=== PATIENT | male | born 1990 | race Caucasian/White ===

== ENCOUNTER → 2020-10-25 | Outpatient (CLI) | payer BC ==
--- NOTE | 2020-10-26 08:39 | ECHOS ---
Stress Test Results/Findings: Exam Performed: stress echo exercise Exam Date: 10/25/20 Reason for Exam: palpitations Height: 5 ft 11 in Weight: 172 kg Protocol: stress echo Stage: 5 Duration of Exercise: 12min 43 sec Resting Heart Rate: 66 Resting Blood Pressure: 110/35 Maximum Achieved Heart Rate: 174 Maximum Achieved Blood Pressure: 197 85% PMHR: 162 100% PMHR: 191 METS: 12.7 Technologist Comment: Stress Test Results/Findings: Patient underwent exercise stress echo with a Celso protocol treadmill stress test. Patient exercised into Stage 4 for a total of 12 minutes 43 seconds reaching a total of 12.7 METS. Patient's maximum heart rate was 174 which represented 90 % age-predicted maximum heart rate. Stress EKG portion: At baseline patient's EKG showed normal sinus rhythm, normal axis, no significant ST or T wave abnormalities. At peak exercise, EKG showed nondiagnostic 0.[address] depressions in the inferior and lateral leads. Stress echo portion: 2-D echocardiogram was performed in the parasternal long, personal short, apical 2 and apical four-chamber views at rest, peak exercise and in recovery. At baseline, echocardiogram showed left ventricular ejection fraction 60 % without wall motion abnormalities. With peak exercise, echocardiogram shows improvement in left ventricular ejection fraction, increase contractility, decrease in left ventricular dimension without wall motion abnormalities consistent with a normal response to exercise. Conclusions: 1. Normal EKG and echo response to exercise without evidence of inducible ischemia. 2. Excellent exercise capacity. [facility]
== END | disposition home or self-care (01) ==
LOC: RADNMMAIN 09:06
PROVIDERS: ATTEND Family Medicine
DX: R00.2 Palpitations (principal)
CPT/HCPCS: 93351

== ENCOUNTER → 2024-06-09 | Outpatient (CLI) | payer OTHER ==
--- NOTE | 2024-06-09 09:13 | CT ---
EXAMINATION TYPE: CT facial bones wo con DATE OF EXAM: 06/09/2024 COMPARISON: None CLINICAL INDICATION: Male, 34 years old with history of S02.651B fracture; PHH, fracture post surgica l TECHNIQUE: CT scan of the sinuses is performed without contrast, axial images are obtained, coronal reformatted images are also reviewed. CT DLP: [address] CTDI: mGy Automated exposure control for dose reduction was used. FINDINGS: There is comminuted fracture of the right mandibular body noted with stabilization hardware in place. Placement at the level of the mandibular body near the mentum is approximately 1.1 cm. The re is also fracture of the mandibular condyle. Sclerosis in the region of the mandibular condyle coul d reflect a degree of interval callus formation. Visualized portion of mastoid air cells show no abnormal opacification. The globes are intact bilate rally. Mucosal thickening of the maxillary sinus and ethmoid air cells. IMPRESSION: Mandibular fractures as noted with surgical hardware placement. [facility], , 06/09/2024 9:10 AM
== END | disposition home or self-care (01) ==
LOC: RADCTMAIN 06:19
PROVIDERS: ATTEND Dentist Oral and Maxillofacial Surgery
DX: S02.651B Fracture of angle of right mandible, initial encounter for open fracture (principal)
CPT/HCPCS: 70486